=== PATIENT | female | born 1985 | race Asian ===

== ENCOUNTER 2016-10-15 06:08 | Emergency (ER) | payer BC ==
[~2016-10-15] VITALS: Ht 180.3 cm; Wt 68.0 kg
[~2016-10-15 06:08] MED LIST: ACET50TA PO; IBUP60TA PO; STUACAP PO
[2016-10-15] MEDS ORDERED: diphenhydrAMINE INJ 50MG/ML VIAL (J1200) IV ONE (07:30)
[2016-10-15] MEDS ORDERED: CLINDAMYCIN 900 MG in APPROPRIATE DILUENT 1 EA IV ONE (07:30)
[2016-10-15] MEDS ORDERED: methylPREDNISolone INJ 125 MG/2 ML VIAL (J2930) IV ONE (08:15)
[2016-10-15 08:29] LABS: MEAN CORPUSCULAR HEMOGLOBIN 31.4 pg (27.0-33.0); MEAN CORPUSCULAR HGB CONC 33.4 g/dl (32.0-36.5); MEAN CORPUSCULAR VOLUME 93.9 fl (80.0-96.0); RED CELL DISTRIBUTION WIDTH 12.5 % (11.5-14.5); WHITE BLOOD COUNT 5.7 K/mm3 (4.0-10.0)
[2016-10-15 10:48] LABS: ALBUMIN 3.6 GM/DL (3.2-5.2); ALBUMIN/GLOBULIN RATIO 1.16 (1.00-1.93); ALKALINE PHOSPHATASE 79 U/L (45-117); ALT/SGPT 13 U/L (12-78); ANION GAP 9 MEQ/L (8-16); AST/SGOT 14 U/L (15-37); BILIRUBIN,TOTAL 0.3 MG/DL (0.2-1.0); BLOOD UREA NITROGEN 13 MG/DL (7-18); CALCIUM LEVEL 8.5 MG/DL (8.5-10.1); CARBON DIOXIDE LEVEL 27 MEQ/L (21-32); CHLORIDE LEVEL 106 MEQ/L (98-107); CREATININE FOR GFR 0.69 MG/DL (0.55-1.02); GLOMERULAR FILTRATION RATE > 60.0 (>60); GLUCOSE, FASTING 139 MG/DL (70-105); POTASSIUM SERUM 4.1 MEQ/L (3.5-5.1); SODIUM LEVEL 142 MEQ/L (136-145); TOTAL PROTEIN 6.7 GM/DL (6.4-8.2)
[2016-10-15] MEDS ORDERED: KEFL500C7 PO (11:01)
[2016-10-15 11:28] VITALS: BP 114/64
== END 2016-10-15 11:29 | disposition home or self-care (01) ==
LOC: M ED 07:57
DX: L08.9 Local infection of the skin and subcutaneous tissue, unspecified (principal); L30.9 Dermatitis, unspecified; Z88.0 Allergy status to penicillin
CPT/HCPCS: 36415; 80053; 81025; 85027; 85652; 86140; 87040; 87880; 96374; 96375; 99284; J1200; J2930

== ENCOUNTER → 2016-11-15 | Outpatient (CLI) | payer BC ==
[~2016-11-15] MED LIST changes: +KEFL500C7 PO
[2016-11-15 13:30] LABS: BASO % 0.4 % (0.0-1.0); EOS # 0.1 K/mm3 (0.0-0.50); LARGE UNSTAINED CELL # 0.1 K/mm3 (0.0-0.4); LARGE UNSTAINED CELL % 2.1 % (0.0-4.0); LYMPH # 2.3 K/mm3 (1.5-4.5); LYMPH % 30.8 % (24.0-44.0); MEAN CORPUSCULAR HEMOGLOBIN 30.7 pg (27.0-33.0); MEAN CORPUSCULAR HGB CONC 32.8 g/dl (32.0-36.5); MEAN CORPUSCULAR VOLUME 93.9 fl (80.0-96.0); MONO # 0.5 K/mm3 (0.0-0.8); MONO % 6.7 % (0.0-5.0); PLATELET COUNT, AUTOMATED 237 k/mm3 (150-450); RED CELL DISTRIBUTION WIDTH 12.3 % (11.5-14.5); WHITE BLOOD COUNT 6.9 K/mm3 (4.0-10.0)
[2016-11-16 10:13] LABS: HBsAg Prenatal NEGATIVE (NEGATIVE)
== END ==
LOC: M SMT 09:01
PROVIDERS: ATTEND Obstetrics & Gynecology
DX: Z34.81 Encounter for supervision of other normal pregnancy, first trimester (principal)

== ENCOUNTER → 2017-02-21 | Outpatient (CLI) | payer BC ==
[~2017-02-21] MED LIST changes: +KEFL500C17 PO; -KEFL500C7 PO
--- NOTE | 2017-02-22 07:44 | REP ---
OBSTETRIC SONOGRAPHY: HISTORY: Supervision of for anatomy. FINDINGS: Scanning through the gravid uterus demonstrates a viable single intrauterine gestation in a transverse, head to the maternal right, lie. motion is observed and heart rate is recorded at 150 beats per minute. A low-lying anterior placenta is seen with its inferior edge at 1.9 cm from the internal cervical os. There is no evidence of abruption. Grade 0. Closed cervical length is 4.9 cm measured transabdominally. Amniotic fluid is subjectively normal. The umbilical cord is seen draping across the shoulders. No anomaly is seen. The following anatomic structures are identified and felt to be sonographically unremarkable: cranium, choroid plexus, cavum, cerebellum and posterior fossa, face and profile, lungs, four-chamber heart with left and right ventricular outflow tract views, diaphragm, left-sided stomach, abdominal wall cord insertion, three-vessel umbilical cord, kidneys and bladder, spine, upper and lower extremities. Biometry Chart: BPD 4.7 cm = 20 weeks 2 days HC 18.2 cm = 20 weeks 4 days AC 15.9 cm = 21 weeks 0 days FL 3.8 cm = 22 weeks 1 day HL 3.5 cm = 22 weeks 1 day HC/AC ratio normal 1.1. Cephalic index normal 0.7 . Estimated weight 421 grams, 0 pounds 14 ounces, 39th percentile for 21 weeks 4 days. IMPRESSION: Viable single intrauterine gestation 21 weeks 2 days by today's composite sonographic criteria. ILIANA by today's sonography July 02, 2017. Low-lying anterior placenta. Recommend transvaginal sonography with Doppler for evaluation of the area of the internal cervical os. Signed by Brett Lewis MD 02/22/2017 08:12 A
== END ==
LOC: M RAD 17:43
PROVIDERS: ATTEND Specialist
DX: Z36 Encounter for antenatal screening of mother (principal); Z3A.21 21 weeks gestation of pregnancy

== ENCOUNTER → 2017-04-13 | Outpatient (CLI) | payer BC ==
[2017-04-13 18:52] LABS: MEAN CORPUSCULAR HEMOGLOBIN 32.1 pg (27.0-33.0); MEAN CORPUSCULAR HGB CONC 33.7 g/dl (32.0-36.5); MEAN CORPUSCULAR VOLUME 95.3 fl (80.0-96.0); RED CELL DISTRIBUTION WIDTH 13.8 % (11.5-14.5); WHITE BLOOD COUNT 6.9 K/mm3 (4.0-10.0)
== END ==
LOC: M WUC 14:25
PROVIDERS: ATTEND Obstetrics & Gynecology
DX: Z34.82 Encounter for supervision of other normal pregnancy, second trimester (principal)

== ENCOUNTER → 2017-05-07 | Outpatient (CLI) | payer BC ==
--- NOTE | 2017-05-07 16:46 | REP ---
Obstetric ultrasound for evaluation of cervical length and growth: There is a single intrauterine gestation in a transverse lie. The head is to the maternal right. There is movement and cardiac activity. heart rate is 130 beats per minute. The placenta is anterior. There is no placenta previa or abruptio. Placenta is grade 1. The amniotic fluid volume subjectively is normal. The amniotic fluid index is 11.9 (8.5 - 24.3). The cervix measures 4.7 cm length. By the ultrasound today the gestational age is 33 weeks 0 days with an ILIANA of 06/25/2017. By the first ultrasound the gestational age is 32 weeks 0 days with an ILIANA of 07/02/2017. By LMP the gestational age is 32 weeks 2 days with an ILIANA of 06/30/2017. weight is 2047 grams (4 pounds, 8 ounces). This is the 53rd percentile for 32 weeks 2 days. Signed by Chris Antonio MD 05/07/2017 04:37 P
== END ==
LOC: M RAD 14:32
PROVIDERS: ATTEND Obstetrics & Gynecology
DX: Z34.83 Encounter for supervision of other normal pregnancy, third trimester (principal)

== ENCOUNTER 2017-07-03 09:21 | Inpatient (IN) | payer BC ==
[~2017-07-03] VITALS: Ht 170.2 cm; Wt 88.8 kg
[2017-07-03] VITALS (36 sets, daily range): BP systolic 98–130; BP diastolic 54–80
[2017-07-03] MEDS ORDERED: LACTATED RINGER'S 1000 ML IV STA (09:44)
[2017-07-03] MEDS ORDERED: LR 1,000 ML IV SCH (09:44)
[2017-07-03] MEDS ORDERED: PRENTAB44 PO (09:50)
[2017-07-03] MEDS ORDERED: ACET50TA PO (09:51)
[2017-07-03 10:00] LABS: MEAN CORPUSCULAR HEMOGLOBIN 31.6 pg (27.0-33.0); MEAN CORPUSCULAR HGB CONC 34.2 g/dl (32.0-36.5); MEAN CORPUSCULAR VOLUME 92.4 fl (80.0-96.0); PLATELET COUNT, AUTOMATED 200 10^3/uL (150-450); RED CELL DISTRIBUTION WIDTH 13.7 % (11.5-14.5); WHITE BLOOD COUNT 9.3 10^3/uL (4.0-10.0)
--- NOTE | 2017-07-03 10:14 | HPE ---
DATE OF ADMISSION: 07/03/2017 HISTORY: 31-year-old G2, P1 female at 40-3/7 weeks gestation by LMP consistent with 8 week ultrasound. EDC 06/30/2017 presents with contractions every 3-4 minutes since midnight the evening prior to admission. He had a small amount of bloody show then contractions increased in intensity. COURSE: This patient initiated care at 10 weeks gestation on 11/27/2016. Her first trimester blood pressure was 110/60, weight 176 pounds. She was diagnosed with gestational diabetes. She was maintained on diet control throughout the whole . She had excellent glucose control. OBSTETRICAL HISTORY: November 2015, 41 week vaginal delivery 8 pounds 6 ounce female infant, no complications. SURGICAL HISTORY: None. ALLERGIES: PENICILLIN. SOCIAL HISTORY: The patient is . She lives in [place]. Her is a resident physician at [employer]. FAMILY HISTORY: Noncontributory. PHYSICAL EXAMINATION: Blood pressure 134/72, pulse 84. She appears uncomfortable. Head and neck exam is normal. Lungs clear. Heart: Regular rate and rhythm. Abdomen: Nontender. Gravid. heart tones category 1. Contractions every 3 minutes. Sterile vaginal exam: 6 cm, 100% effaced, -2 station. Vertex. Soft. Intact. Extremities: Nontender. LABS: Blood type is O positive, rubella immune. RPR nonreactive. Hepatitis B and C negative. HIV negative. Group B Streptococcus (GBS) negative on 06/04/2017. ASSESSMENT: 31-year-old G2, P1 female at 40-3/7 weeks gestation presents in active labor. Patient is admitted on 07/03/2017.
[2017-07-03] MEDS ORDERED: FENTANYL 2MCG/ML ROPIVACAINE 0.2% IN 0.9% NACL 200ML IVBAG As Ordered ONE (10:18)
[2017-07-03] MEDS ORDERED: OXYTOCIN 30 UNITS IN 0.9% NaCl 500ML IV BAG (J2590) As Ordered ONE (13:22)
[2017-07-03] MEDS ORDERED: REFRIGERATOR IV KEYS XX PRN (14:30)
[2017-07-03] MEDS ORDERED: ONDANSETRON 4MG/2ML VIAL (J2405) IV PRN ×2 (14:30→16:15)
[2017-07-03] MEDS ORDERED: diphenhydrAMINE INJ 50MG/ML VIAL (J1200) IV PRN (14:30)
[2017-07-03] MEDS ORDERED: NALOXONE INJ 0.4 MG/1 ML VIAL (J2310) IV PRN (14:30)
[2017-07-03] MEDS ORDERED: LACTATED RINGER'S 1000 ML IV PRN (14:30)
[2017-07-03] MEDS ORDERED: ePHEDrine SULFATE 25 MG/5 ML(5MG/ML) SYRINGE IV PRN (14:30)
[2017-07-03] MEDS ORDERED: EPIDURAL/PCA KEYS XX PRN (14:30)
[2017-07-03] MEDS ORDERED: EPIDURAL COMMENT XX SCH (14:30)
[2017-07-03] MEDS ORDERED: FENTANYL/ROPIVACAINE/NACL BAG 200 ML EPIDURAL SCH (14:30)
[2017-07-03] MEDS ORDERED: OXYTOCIN DRIP 30 UNITS in APPROPRIATE DILUENT 1 EA IV SCH (15:00)
[2017-07-03] MEDS ORDERED: ACETAMINOPHEN 500 MG TAB PO PRN (16:15)
[2017-07-03] MEDS ORDERED: DOCUSATE SODIUM 100 MG CAP PO PRN (16:15)
[2017-07-03] MEDS ORDERED: DIBUCAINE 1% OINTMENT 30GM TOP PRN (16:15)
[2017-07-03] MEDS ORDERED: MEASLES,MUMPS,RUBELLA VACCINE INJ (MMR-II) (90707) SC SCH (16:15)
[2017-07-03] MEDS ORDERED: IBUPROFEN 800 MG TAB PO PRN (16:15)
[2017-07-03] MEDS ORDERED: OXYTOCIN DRIP 30 UNITS in APPROPRIATE DILUENT 1 EA IV ONE (16:15)
[2017-07-03] MEDS ORDERED: RHOGAM 300 MCG (1500 IU) INJ (J2790) IM SCH (16:15)
[2017-07-03] MEDS ORDERED: METHYLERGONOVINE MALEATE 0.2 MG TAB PO PRN (16:15)
[2017-07-03] MEDS ORDERED: miSOPROStol 200 MCG TAB (S0191) PR ONE (16:30)
--- NOTE | 2017-07-03 16:33 | DN ---
DATE OF DELIVERY: 07/03/2017 PREDELIVERY DIAGNOSIS: 40 weeks gestation in labor. POSTDELIVERY DIAGNOSIS: Delivered. PROCEDURE: Spontaneous vaginal delivery. STRUCTURAL DESIGN ENGINEER: Dr. Edgardo Rivas ANESTHESIA: Epidural. ESTIMATED BLOOD LOSS: 500 mL. FINDINGS: 8 pound 11 ounce or 3950 gram female infant. scores 9 and 9. DELIVERY SUMMARY: After a 35 minute second stage, the patient had spontaneous delivery of an 8 pound 11 ounce female infant under epidural anesthesia. A loose nuchal cord times one was reduced. The shoulders delivered with ease. The cried spontaneously and was handed to the mother. The cord was doubly clamped and cut. The placenta delivered spontaneously and appeared to be intact. Moderate uterine atony was encountered. The patient received IV Pitocin immediately after delivery of the placenta. She also received Cytotec 800 mcg per rectum. Good hemostasis was noted. There were no vaginal lacerations present. Sponge counts were correct.
[2017-07-04 06:35] VITALS: BP 95/50
[2017-07-04] MEDS: PRENATAL VITAMINS CHEWABLE TABLET PO SCH (10:21)
[2017-07-04 17:51] VITALS: BP 106/58
[2017-07-05 06:00] VITALS: BP 103/52
[2017-07-05] MEDS ORDERED: ACET50TA PO (08:01)
[2017-07-05] MEDS ORDERED: IBUP-1114 PO (08:01)
[2017-07-05] MEDS: PRENATAL VITAMINS CHEWABLE TABLET PO SCH (08:05)
== END 2017-07-05 09:55 | disposition home or self-care (01) | DRG 560 ==
LOC: M LDO 09:21 → M LDI 09:39 → M OBS 18:00
PROVIDERS: ADMIT Specialist; ATTEND Specialist
PROC: 10E0XZZ Delivery of Products of Conception, External Approach (ICD-10-PCS; principal; 2017-07-03)
DX: O48.0 Post-term pregnancy (principal); O24.420 Gestational diabetes mellitus in childbirth, diet controlled; Z37.0 Single live birth; Z3A.40 40 weeks gestation of pregnancy; O69.82X0 Labor and delivery complicated by other cord entanglement, without compression, not applicable or unspecified; Z88.0 Allergy status to penicillin; O62.2 Other uterine inertia